=== PATIENT | male | born 1990 | race Hispanic/Latino ===

== ENCOUNTER 2020-01-15 20:39 | Emergency (ER) | payer BC, OTHER ==
--- NOTE | 2020-01-15 21:39 | ER ---
Nurse's Notes [facility] Name: Teo Gr Age: 29 yrs Sex: Male : 1990 Arrival Date: 01/15/2020 Time: 20:42 Bed 27 Private MD: Diagnosis: Fever, unspecified;Acute upper respiratory infection, unspecified Presentation: 01/15 20:46 Presenting complaint: Patient states: Reports he has been around his girlfriend who was ea diagnosed with strep and flu type A this AM. Pt reports flu like symptoms. Transition of care: patient was not received from another setting of care. Onset of symptoms was January 15, 2020. Initial Sepsis Screen: Does the patient have a suspected source of infection? No. Patient's initial sepsis screen is negative. Care prior to arrival: None. 20:46 Method Of Arrival: Ambulatory ea 20:46 Acuity: KAREN 4 ea 21:30 Risk Assessment: Do you want to hurt yourself or someone else? Patient reports no vc desire to harm self or others. Initial Sepsis Screen: Does the patient meet any 2 criteria? No. Patient's initial sepsis screen is negative. Triage Assessment: 21:30 General: Appears in no apparent distress. uncomfortable, ill, Behavior is calm, vc cooperative, appropriate for age. Pain: Complains of pain in GENERALIZED. EENT: No signs and/or symptoms were reported regarding the EENT system. Neuro: Level of Consciousness is awake, alert, obeys commands, Oriented to person, place, time, situation. Cardiovascular: Patient's skin is warm and dry. Respiratory: Respiratory effort is even, unlabored, Respiratory pattern is regular, symmetrical. GI: No signs and/or symptoms were reported involving the gastrointestinal system. : No signs and/or symptoms were reported regarding the genitourinary system. Derm: Skin temperature is warm. Derm: Skin temperature is hot. Musculoskeletal: Circulation, motion, and sensation intact. Capillary refill < 3 seconds, Range of motion: intact in all extremities. Historical: - Allergies: 20:51 Codeine; ea 20:51 tramadol; ea - Home Meds: 20:51 None [Active]; ea - PMHx: 20:51 anxiety; ea - PSHx: 20:51 None; ea - Immunization history:: Adult Immunizations up to date. - Coronavirus screen:: The patient has NOT traveled to [place] in the past 14 days. - Social history:: Smoking status: Patient reports the use of cigarette tobacco products, smokes one pack cigarettes per day. - Family history:: not pertinent. - Ebola Screening: : No symptoms or risks identified at this time. - Hospitalizations: : No recent hospitalization is reported. Screenin:48 Abuse screen: Denies threats or abuse. Nutritional screening: No deficits noted. ea Tuberculosis screening: No symptoms or risk factors identified. Fall Risk None identified. Assessment: 21:45 Reassessment: Patient and/or family updated on plan of care and expected duration. Pain vc level reassessed. Patient is alert, oriented x 3, equal unlabored respirations, skin warm/dry/pink. 21:45 Reassessment: SEE TRIAGE FOR ASSESSMENT. vc Vital Signs: 20:48 BP 130 / 73; Pulse 120; Resp 18; Temp 100.3; Pulse Ox 98% ; Weight 104.33 kg; Height 5 ea ft. 7 in. (170.18 cm); 20:48 Body Mass Index 36.02 (104.33 kg, 170.18 cm) ea ED Course: 20:42 Patient arrived in ED. ag3 20:48 Triage completed. ea 20:49 Patient has correct armband on for positive identification. ea 20:51 Arm band placed on right wrist. ea 20:57 Villa Burger MD is Attending Physician. rn 21:24 Bonny Zamora RN is Primary Nurse. vc 22:00 No provider procedures requiring assistance completed. Patient did not have IV access vc during this emergency room visit. Administered Medications: 21:53 Drug: Tylenol 1000 mg Route: PO; vc 22:00 Follow up: Response: Medication administered at discharge. vc 21:54 Drug: Tamiflu 75 mg Route: PO; vc 22:00 Follow up: Response: No adverse reaction; Medication administered at discharge. vc Outcome: 21:38 Discharge ordered by . rn 22:00 Discharged to home ambulatory, with significant other. vc 22:00 Condition: good 22:00 Discharge instructions given to patient, Instructed on discharge instructions, follow up and referral plans. medication usage, Demonstrated understanding of instructions, follow-up care, medications, Prescriptions given X 1. 22:01 Patient left the ED. vc Signatures: Villa Burger MD MD rn Antunez, Elena, RN RN ea Gomez, Leny ag3 Calcote, Bonny, RN RN vc
--- NOTE | 2020-01-15 21:39 | EDPHYS ---
Physician Documentation [facility] Name: Teo Gr Age: 29 yrs Sex: Male : 1990 Arrival Date: 01/15/2020 Time: 20:42 Bed 27 Private MD: ED Physician Villa Burger HPI: 01/15 21:05 This 29 yrs old Male presents to ER via Ambulatory with complaints of Flu rn Symptoms. 21:05 The patient reports fever, not measured (subjective). Onset: The symptoms/episode rn began/occurred today. Modifying factors: The patient has had contact with sick significant other. Severity of symptoms: At their worst the symptoms were mild in the emergency department the symptoms are unchanged. The patient has experienced a previous episode. The patient has not recently seen a physician. Reports here earlier with significant other, she was diagnosed with flu and strep, + fever and chills. No vomiting and diarrhea. Reports worst symptom is muscle aches and fatigue.. Historical: - Allergies: 20:51 Codeine; ea 20:51 tramadol; ea - Home Meds: 20:51 None [Active]; ea - PMHx: 20:51 anxiety; ea - PSHx: 20:51 None; ea - Immunization history:: Adult Immunizations up to date. - Coronavirus screen:: The patient has NOT traveled to [place] in the past 14 days. - Social history:: Smoking status: Patient reports the use of cigarette tobacco products, smokes one pack cigarettes per day. - Family history:: not pertinent. - Ebola Screening: : No symptoms or risks identified at this time. - Hospitalizations: : No recent hospitalization is reported. ROS: 21:05 Constitutional: + fever and chills Eyes: Negative for injury, pain, redness, and claims attorney, Neck: Negative for injury, pain, and swelling, Cardiovascular: Negative for chest pain, palpitations, and edema, Respiratory: Negative for shortness of breath, wheezing, and pleuritic chest pain, Abdomen/GI: Negative for abdominal pain, nausea, vomiting, diarrhea, and constipation, MS/Extremity: Negative for injury and deformity, Skin: Negative for injury, rash, and discoloration, Neuro: Negative for numbness, tingling, and seizure. Exam: 21:05 Constitutional: This is a well developed, well nourished patient who is awake, alert, rn and in no acute distress. Head/Face: Normocephalic, atraumatic. Eyes: Pupils equal round and reactive to light, extra-ocular motions intact. Lids and lashes normal. Conjunctiva and sclera are non-icteric and not injected. Cornea within normal limits. Periorbital areas with no swelling, redness, or edema. ENT: dry MM, no stridor, + pharyngeal erythema no exudate, + tender anterior cervical LAD Neck: Supple, full range of motion without nuchal rigidity, or vertebral point tenderness. No Meningismus. Cardiovascular: Tachycardic, regular, intact distal pulses Respiratory: Speaking full sentences, non-labored breathing MS/ Extremity: Pulses equal, no cyanosis. Neurovascular intact. Full, normal range of motion. Equal circumference. Neuro: Awake and alert, GCS 15 Vital Signs: 20:48 BP 130 / 73; Pulse 120; Resp 18; Temp 100.3; Pulse Ox 98% ; Weight 104.33 kg; Height 5 ea ft. 7 in. (170.18 cm); 20:48 Body Mass Index 36.02 (104.33 kg, 170.18 cm) ea MDM: 20:57 Patient medically screened. rn 21:37 Differential diagnosis: viral Infection, bacterial infection, URI. Data reviewed: vital rn signs, nurses notes, lab test result(s), and as a result, I will discharge patient. Counseling: I had a detailed discussion with the patient and/or guardian regarding: the historical points, exam findings, and any diagnostic results supporting the discharge/admit diagnosis, lab results, the need for outpatient follow up, to return to the emergency department if symptoms worsen or persist or if there are any questions or concerns that arise at home. Special discussion: I discussed with the patient/guardian in detail that at this point there is no indication for admission to the hospital. It is understood, however, that if the symptoms persist or worsen the patient needs to return immediately for re-evaluation. ED course: both flu and strep neg, but symptoms consistent with flu and close contact, may be too early, will dc home with tamiflu, will not give abx given neg strep and told patient will call in abx if throat culture +. . 01/15 20:44 Order name: Flu; Complete Time: 21:37 snw 01/15 20:44 Order name: Strep; Complete Time: 21:37 snw 01/15 21:28 Order name: Throat Culture EDMS Administered Medications: 21:53 Drug: Tylenol 1000 mg Route: PO; vc 22:00 Follow up: Response: Medication administered at discharge. vc 21:54 Drug: Tamiflu 75 mg Route: PO; vc 22:00 Follow up: Response: No adverse reaction; Medication administered at discharge. vc Disposition: 01/15/20 21:38 Discharged to Home. Impression: Fever, unspecified, Acute upper respiratory infection, unspecified. - Condition is Stable. - Discharge Instructions: Fever, Adult, Viral Respiratory Infection. - Prescriptions for Tamiflu 75 mg Oral Capsule - take 1 tablet by ORAL route every 12 hours for 5 days; 10 tablet. - Medication Reconciliation Form, Thank You Letter, Antibiotic Education, Prescription Opioid Use, Work release form form. - Follow up: Private Physician; When: As needed; Reason: Recheck today's complaints, Re-evaluation by your physician. - Problem is new. - Symptoms have improved. Signatures: Dispatcher [employer] EDMS Villa Burger MD MD rn Antunez, Elena, RN RN ea Calcote, Vanessa, RN RN vc Corrections: (The following items were deleted from the chart) 21:08 21:05 Constitutional: This is a well developed, well nourished patient who is awake, rn alert, and in no acute distress. Head/Face: Normocephalic, atraumatic. Eyes: Pupils equal round and reactive to light, extra-ocular motions intact. Lids and lashes normal. Conjunctiva and sclera are non-icteric and not injected. Cornea within normal limits. Periorbital areas with no swelling, redness, or edema. ENT: dry MM, no stridor, + pharyngeal erythema no exudate, + tender anterior cervical LAD Neck: Supple, full range of motion without nuchal rigidity, or vertebral point tenderness. No Meningismus. Cardiovascular: Tachycardic, regular, intact distal pulses Respiratory: Speaking full sentences, non-labored breathing MS/ Extremity: Pulses equal, no cyanosis. Neurovascular intact. Full, normal range of motion. Equal circumference. Neuro: Awake and alert, GCS 15, oriented to person, place, time, and situation. Cranial nerves II-XII grossly intact. Motor strength 5/5 in all extremities. Sensory grossly intact. rn 22:01 21:38 01/15/2020 21:38 Discharged to Home. Impression: Fever, unspecified; Acute upper vc respiratory infection, unspecified. Condition is Stable. Forms are Medication Reconciliation Form, Thank You Letter, Antibiotic Education, Prescription Opioid Use. Follow up: Private Physician; When: As needed; Reason: Recheck today's complaints, Re-evaluation by your physician. Problem is new. Symptoms have improved. rn
[2020-01-15] MEDS ORDERED: ACETAMINOPHEN 500 MG TAB ONE (21:56)
[2020-01-15] MEDS ORDERED: OSELTAMIVIR 75 MG CAP ONE (21:59)
[2020-01-15 22:26] VITALS: BP 130/73; TEMP 100.3; O2SAT 98
== END 2020-01-15 22:01 | disposition home or self-care (01) ==
LOC: ER 20:39
DX: J06.9 Acute upper respiratory infection, unspecified (principal); F17.210 Nicotine dependence, cigarettes, uncomplicated; Z88.5 Allergy status to narcotic agent
CPT/HCPCS: 87070; 87081; 87804; 99283

== ENCOUNTER 2024-09-14 20:13 | Emergency (ER) | payer BC ==
[2024-09-14] MEDS ORDERED: LEVALBUTEROL 1.25 MG/3 ML NEB ONE (21:13)
[2024-09-14] MEDS ORDERED: METHYLPREDNISOLONE 125 MG INJ ONE (21:13)
--- NOTE | 2024-09-14 21:32 | RAD REPORT ---
EXAMINATION: TWO VIEW CHEST XR CLINICAL INDICATION: Male, 33 years old. [facility] MAIN Cough;Fever Bed Name: TECHNIQUE: 2 view radiographs of the chest were performed. COMPARISON: 04/04/[address] chest 12/29/2023 FINDINGS: The lungs are well inflated and clear. No pneumothorax or sizable effusion. The heart is normal in si ze. Mediastinal contours are unremarkable. IMPRESSION: No acute or significant abnormalities.
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
[2024-09-14] MEDS ORDERED: levoFLOXacin 750 MG TAB ONE (22:34)
[2024-09-15 11:52] VITALS: TEMP 98.2; O2SAT 100
[2024-09-15 11:53] VITALS: BP 127/84
== END 2024-09-14 23:06 | disposition home or self-care (01) ==
LOC: ER 20:13
DX: J06.9 Acute upper respiratory infection, unspecified (principal)
CPT/HCPCS: 71046; 96372; 99285; J7614; J2919